=== PATIENT | male | born 1935 | race Caucasian/White ===

== ENCOUNTER 2017-10-01 15:30 | Outpatient (CLI) | payer OTHER ==
--- NOTE | 2017-10-01 19:08 | CT ---
PRE AND POST CONTRAST HEAD CT: HISTORY: Loss of appetite. Ten pound weight loss. Evaluate for brain metastases. COMPARISON: None. TECHNIQUE: Pre and post contrast head CT is performed in the axial plane. FINDINGS: PRE-CONTRAST: No parenchymal hemorrhage. No extraaxial hematoma. No midline shift. Basilar cister ns are patent. Brain volume is age appropriate. Cortical huerta white matter differentiation is prese rved. Ventricles and sulci are patent and symmetric. The calvarium is intact. Adequate aeration of the sinuses and mastoid air cells. POST-CONTRAST: There is no pathologic enhancement of the brain parenchyma. No CT evidence of cytoto xic or vasogenic edema. IMPRESSION: Unremarkable pre and post contrast brain CT. No CT evidence of intracranial metastases. POS: [facility]
--- NOTE | 2017-10-01 19:21 | CT ---
ABDOMEN CT WITH CONTRAST PELVIC CT WITH CONTRAST 10/01/17 HISTORY: Known gastric cancer. Weight loss. Loss of appetite. Evaluate for metastases. COMPARISON: None. TECHNIQUE: An abdomen and pelvic CT are performed with IV and oral contrast. Coronal reformatted images are subm itted for interpretation. FINDINGS: ABDOMEN CT: No masses are consolidation in the lung bases. Heart size is enlarged. No significant pericardial flu id. The descending thoracic aorta and abdominal aorta have a normal caliber. No periaortic fat strand ing. Intra and extrahepatic portal vein is patent. Contracted gallbladder. The liver, spleen, pancreas, an d adrenal glands have appropriate enhancement. Exophytic hypodensity emanating from the upper pole of the right kidney measures 10.6 x 10.9 cm, comp atible with a simple cyst. There is symmetric enhancement of the kidneys. Bilaterally, no obstructive uropathy. There do appear to be nonspecific gastrohepatic lymph nodes, limited in evaluation. Large lymph node appears to be 1.0 x 0.8 cm. No retrocrural or periportal lymphadenopathy. There is no mesenteric mass , lymphadenopathy, or free air. There is a small amount of perihepatic fluid. There is a small amoun t of fluid in the right pericolic gutter. No significant fluid in Cool's pouch. There is circumferential mucosal thickening of the stomach. Findings are limited and nonspecific. Gas tric thickening may be due to posttreatment change of a patient with known gastric neoplasm. Multiple normal caliber small bowel loops. Ileocecal junction is normal. Normal caliber appendix. Scattered f ecal material in a nondistended, nondilated colon. PELVIC CT: No mass, lymphadenopathy, free air or free fluid. Unremarkable urinary bladder. Mild prostatic hypert rophy. No lytic or blastic lesions in the osseous structures. There appears to be a laceration or def ect involving the anterior right abdominal soft tissues. Possible packing material measuring 4.3 x 1. 4 cm. IMPRESSION: 1. Mucosal thickening of the stomach which is presumed to be due to treatment change with superi mposed malignancy. 2. Nonspecific gastrohepatic lymph node. Results of the head CT, chest, abdomen and pelvic CT discussed with Dr. Julio on 10/01/17 at 5:15 p .m. Code CR POS: [facility]
== END 2017-10-01 15:31 | disposition home or self-care (01) ==
LOC: CT 15:30
PROVIDERS: ATTEND Internal Medicine Hematology & Oncology
DX: C16.1 Malignant neoplasm of fundus of stomach (principal)
CPT/HCPCS: 70470; 74177; 80053; 82248; 83615; 84100; 84550

== ENCOUNTER 2017-12-10 11:47 | Day surgery (SDC) | payer OTHER, MEDICARE ==
[2017-12-09 13:52] VITALS: BMI 25.4
[2017-12-10 12:34] LABS: INR-International Normal Ratio 1.3; PTT 29.1 SEC (22.9-36.1); Prothrombin Time 16.1 SEC (12.0-14.7)
[2017-12-10] MEDS ORDERED: Sodium Bicarbonate 2.5 MEQ/5 ML VIAL ONE (12:46)
[2017-12-10] MEDS ORDERED: Lidocaine 1% PF 5 ML VIAL ONE (12:46)
[2017-12-10 14:12] VITALS: BP 98/84; TEMP 97.8
--- NOTE | 2017-12-10 14:53 | ULT ---
PREPROCEDURE DIAGNOSIS: Malignant ascites. POSTPROCEDURE DIAGNOSIS: Malignant ascites. PROCEDURE: Ultrasound-guided paracentesis. ANESTHESIA: Buffered 1% Lidocaine 5 mL. COMPLICATIONS: None. SPECIMEN: Straw-colored fluid, 5100 mL. TECHNIQUE: Prior to the procedure, the risks and benefits of an ultrasound-guided paracentesis were explained to the patient, and he consented fully to the procedure. The area was placed on the table, so that the largest collection of fluid was able to be present in t he right mid abdomen. This area was then prepped and draped in the usual sterile fashion. Lidocaine was used to anesthetize the skin and soft tissues down toward the peritoneal cavity. A sma ll skin incision was made, allowing for passage of a [place] needle and catheter. This needle and jordin ter were then placed, using ultrasound guidance, into the peritoneal cavity. Once the needle and cat heter were in place, the needle was removed, and the catheter was left in place. This was connected to multiple vacutainer bottles. A total of 5100 mL of straw-colored fluid was removed. No residual fluid is seen in the right abdomen, after the paracentesis. The catheter was removed. The patient t olerated the procedure well without immediate post procedure complications. IMPRESSION: Status post successful ultrasound-guided paracentesis. POS: [facility]
== END 2017-12-10 13:50 | disposition home or self-care (01) ==
LOC: ULT 11:47
PROVIDERS: ATTEND Internal Medicine Hematology & Oncology
PROC: 0W9G3ZZ Drainage of Peritoneal Cavity, Percutaneous Approach (ICD-10-PCS; principal; 2017-12-10)
DX: C16.1 Malignant neoplasm of fundus of stomach (principal); R18.0 Malignant ascites; I10 Essential (primary) hypertension; M19.90 Unspecified osteoarthritis, unspecified site; K21.9 Gastro-esophageal reflux disease without esophagitis; Z98.890 Other specified postprocedural states
CPT/HCPCS: 49083; 85610; 85730; J2001

== ENCOUNTER 2017-12-15 10:02 | Day surgery (SDC) | payer OTHER, MEDICARE ==
[~2017-12-15 10:02] MED LIST: Prevnar 13-Val Conj/PF 0.5 ML SYRINGE IM ONE
[2017-12-15] MEDS ORDERED: Sodium Bicarbonate 2.5 MEQ/5 ML VIAL ONE (10:14)
[2017-12-15] MEDS ORDERED: Lidocaine 1% PF 5 ML VIAL ONE (10:14)
[2017-12-15 11:41] VITALS: BMI 21.7
[2017-12-15 11:50] VITALS: BP 119/79; TEMP 97.9
--- NOTE | 2017-12-15 13:44 | ULT ---
ULTRASOUND GUIDED PARACENTESIS: 12/15/2017 HISTORY: Ascites. TECHNIQUE: The procedure, including the risks and complications, were explained to the patient, and informed con sent was obtained. The patient was placed on the angiography table in the supine position. A limite d sonographic evaluation of the abdomen was performed. An area in the mid axillary line, left lower quadrant, was marked, and the area was meticulously prepped and draped in the usual sterile fashion. The skin and subcutaneous tissues were infiltrated with buffered 1% Lidocaine for local anesthesia, a t the intended puncture site. A small skin incision was made. Utilizing concurrent real-time ultras ound guidance, a 19 gauge Yueh needle with a 5 [place]ij[place] sheath was advanced into the abdomen. After th e return of fluid, the sheath was advanced and the needle was removed. Approximately 3500 mL of jose r straw-colored fluid was aspirated. The catheter was removed, and hemostasis was achieved with dire ct pressure. A dry, sterile dressing was placed at the puncture site. Follow-up ultrasound examinat ion does demonstrate a small amount of residual retroperitoneal free fluid in the left lower quadrant . The patient tolerated the procedure well and without immediate complications. IMPRESSION: Technically successful ultrasound-guided paracentesis with aspiration of 3500 mL of clear, straw-colo red fluid. POS: [facility]
== END 2017-12-15 11:27 | disposition home or self-care (01) ==
LOC: ULT 10:02
PROVIDERS: ATTEND Internal Medicine Hematology & Oncology
PROC: BW40ZZZ Ultrasonography of Abdomen (ICD-10-PCS; principal; 2017-12-15)
PROC: 0W9G3ZZ Drainage of Peritoneal Cavity, Percutaneous Approach (ICD-10-PCS; principal; 2017-12-15)
DX: C16.1 Malignant neoplasm of fundus of stomach (principal); C78.6 Secondary malignant neoplasm of retroperitoneum and peritoneum; R18.0 Malignant ascites; I10 Essential (primary) hypertension; K21.9 Gastro-esophageal reflux disease without esophagitis; Z87.891 Personal history of nicotine dependence; Z79.899 Other long term (current) drug therapy
CPT/HCPCS: 49083; J2001